=== PATIENT | female | born 1945 | race Caucasian/White ===

== ENCOUNTER 2024-09-21 13:14 | Outpatient (AMB) | payer MEDICARE, OTHER, SELFPAY ==
--- NOTE | 2024-09-21 13:21 | MHC.PC.OV ---
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 patient visit [employer] Marker Required: No Allergies Penicillins Allergy (Intermediate, Verified 09/21/24 13:24) Rash Medication List - Last Reconciled 09/24/24 by Bernadine Mcdonough MD atorvastatin 40 mg PO DAILY calcium 26-magnesium 15-zinc PO cholecalciferol (vitamin D3) 25 mcg PO DAILY [co qu 10 300 .] dorzolamide 2% 1 drp ophthalmic (eye) BID famotidine 40 mg PO BEDTIME fexofenadine (Allergy Relief (fexofenadine)) 180 mg PO DAILY multivitamin 1 tab PO DAILY vitamin B complex ER (Complex B-100 tablet,extended release) 1 tab PO DAILY Tobacco use date assessed: 09/21/24 Fall risk assessment: No Falls in past year Last assessed Fall Risk: 09/21/24 Dental Screening Dental Screen Date: 09/21/24 Did you have a dental visit in the last 12 months?: Yes Did you have a dental problem in the last 6 months where you did not have access to dental care?: No Was dental information given to patient?: Patient has dentist HPI HPI Comments History of Present Illness Details 79 year old female with a past medical history of GERD, hyperlipidemia, osteopenia, allergic rhinitis, atrophic vaginitis, [facility]. Transfer from [facility], Dr Modi then went to [facility] CV: on lipitor 40mg daily-taking 20mg daily. LDL 77. Denies chest pain, shortness of breath. Osteopenia: On calcium & vitamin D, vitamin D. GERD: on famotidine prn. Sees [facility]-Dr Roa. Mammogram: 11/2023 DXA: 06/08/21 osteopenia UTD with covid vaccines, flu vaccines, RSV. PCV 13 2015, Pneumo 23 2017 ROS CONSTITUTIONAL: Denies weight loss, fever and chills. HEENT: Denies changes in vision and hearing. RESPIRATORY: Denies SOB and cough. CV: Denies palpitations and CP GI: Denies abdominal pain, nausea, vomiting and diarrhea. : Denies dysuria and urinary frequency. MSK: Denies new myalgia and joint pain. SKIN: Denies rash and pruritus. NEUROLOGICAL: Denies headache PSYCHIATRIC: Denies recent changes in mood. PHYSICAL EXAM: GENERAL: Alert and oriented x 3. NAD EYES: EOMI. Anicteric. HENT: Moist mucous membranes. No scleral icterus. No cervical lymphadenopathy. LUNGS: Clear to auscultation bilaterally. CARDIOVASCULAR: Regular rate and rhythm. No murmur. No JVD. ABDOMEN: Soft, non-tender +bs EXTREMITIES: No edema. Non-tender. SKIN: No rashes or lesions. Warm. NEUROLOGIC: No focal neurological deficits. CN II-XII grossly intact PSYCHIATRIC: Cooperative. Appropriate mood and affect [facility] Surgical History History of partial hysterectomy Family History Father Alcoholic Heart disease Glaucoma HTN (hypertension) Mother HTN (hypertension) Family history of thyroid problem Rheumatoid arthritis Heart disease Other Substance abuse Social History Housing: Condominium Alcohol intake: current Patient Tobacco Use Status: Former Tobacco user (quit over 50 years ago) Tobacco use type: Cigarette Years Smoked: 5 years, socially e-Cigarette/Vaping Use: Never Used Second Hand Smoke Exposure: Yes (past) Cognitive needs: No Hearing needs: Yes (hearing aids both ears) Vision needs: Yes (glasses) Questionnaire PHQ-9 Over the last 2 weeks, how often have you been bothered by any of the following problems? 1. Little interest or pleasure in doing things: not at all 2. Feeling down, depressed, or hopeless: not at all 3. Trouble falling or staying asleep, or sleeping too much: several days 4. Feeling tired or having little energy: several days 5. Poor appetite or overeating: not at all 6. Feeling bad about yourself - or that you are a failure or have let yourself or your family down: not at all 7. Trouble concentrating on things, such as reading the newspaper or watching television: not at all 8. Moving or speaking so slowly that other people could have noticed. Or the opposite - being so fidgety or restless that you have been moving around a lot more than usual: not at all 9. Thoughts that you would be better off or of hurting yourself in some way: not at all Total score: 2 Depression Screening Interpretation: Negative Depression Screening Done: Yes 23563 - PHQ-9 Billing: Yes Source: Developed by Drs. Jamari Paez, Lorrie Ceja, Carl Colon and colleagues, with an educational gia from [employer]. Thrive Questionnaire I am a: Patient What is your living situation today?: I have a steady place to live Within the past 12 months, did the food you bought not last and you didn't have the money to get more?: Never true Within the past 12 months, did you worry whether your food would run out before you got money to buy more?: Never true Do you have trouble paying for medicines?: No Do you have trouble getting transportation to medical appointments?: No Do you have trouble paying your heating and electricity bill?: No Do you have trouble taking care of your child, family member or friend?: No Do you have trouble with day-to-day activities such as bathing, preparing meals, shopping, managing finances, etc.?: No Are you currently unemployed and looking for a job?: No Are you interested in more education?: No Please select the resources that you would like help with: None Currently or been in a relationship where the following occur: No concerns reported THRIVE Score: 0 AUDIT C Alcohol Use Questionnaire (AUDIT-C) 1. How often do you have a drink containing alcohol?: 4 or more times a week 2. How many drinks containing alcohol do you have on a typical day when you are drinking?: 1 or 2 3. How often do you have six or more drinks on one occasion?: Never Total Score: 4 ANGELA-7 AMB Questionnaire ANGELA-7 Feeling nervous, anxious, or on edge: 1 = Several days Not being able to stop or control worryin = Not at all Worrying too much about different things: 1 = Several days Trouble relaxin = Not at all Being so restless that it is hard to sit still: 0 = Not at all Becoming easily annoyed or irritable: 0 = Not at all Feeling afraid as if something awful might happen: 0 = Not at all Total ANGELA-7 score (0-4 normal; 5-9 mild; 10-14 moderate; 15-21 severe): 2 Source: Developed by Drs. Jamari Paez, Lorrie Ceja, Carl Colon and colleagues, with an educational gia from [employer]. Physical exam (Primary Care) Vital Signs: Last Vital Signs Pulse 72 09/21/24 13:32 Resp 14 09/21/24 13:32 BP 122/72 09/21/24 13:32 Pulse Ox 97 09/21/24 13:32 Oxygen Delivery Method Room Air 09/21/24 13:32 BMI result Body Mass Index 24.2 Tobacco/Smoking Status: Tobacco use Status Tobacco use date assessed 09/21/24 09/21/24 13:35 Patient Tobacco Use Status Former Tobacco user (quit 09/21/24 13:35 over 50 years ago) Tobacco use type Cigarette 09/21/24 13:35 e-Cigarette/Vaping Use Never Used 09/21/24 13:35 PHQ-9: PHQ-9 Score PHQ-9: Total score 2 09/24/24 15:44 Depression Screening Interpretation: Negative Currently or been in a relationship where the following occur: No concerns reported Coding Level of Care Code New Pt Level 4 (72438) Complex EM visit Add On G2211 Diagnoses Encounter to establish care Z76.89 Mixed hyperlipidemia E78.2 Hyperlipidemia type: mixed hyperlipidemia Osteopenia, unspecified location M85.80 Osteopenia location: unspecified Additional Codes PHQ-9 - 21840 - PHQ-9 Billing: Yes ([id number]) Assessment & Plan Assessment & Plan (1) Encounter to establish care: Code(s): Z76.89 - Persons encountering health services in other specified circumstances Category: Medical Plan: 79 year old to establish care. past medical, surgical, social and family history reviewed. labs ordered (2) Hyperlipidemia: Code(s): E78.5 - Hyperlipidemia, unspecified Category: Medical Qualifiers: Hyperlipidemia type: mixed hyperlipidemia Qualified Code(s): E78.2 - Mixed hyperlipidemia Plan: continue statin therapy (3) Osteopenia: Code(s): M85.80 - Other specified disorders of bone density and structure, unspecified site Category: Medical Qualifiers: Osteopenia location: unspecified Qualified Code(s): M85.80 - Other specified disorders of bone density and structure, unspecified site Plan: continue ca & vitamin D Orders: Orders Complete Blood Count Auto Diff 09/21/24 E78.5 - Hyperlipidemia, unspecified, M85.80 - Other specified disorders of bone density and structure, unspecified site, Z13.228 - Encounter for screening for other metabolic disorders, Z76.89 - Persons encountering health services in other specified circumstances Comprehensive Met. Panel 09/21/24 E78.5 - Hyperlipidemia, unspecified, M85.80 - Other specified disorders of bone density and structure, unspecified site, Z13.228 - Encounter for screening for other metabolic disorders, Z76.89 - Persons encountering health services in other specified circumstances Vitamin D 25-OH (D2 and D3) 09/21/24 E78.5 - Hyperlipidemia, unspecified, M85.80 - Other specified disorders of bone density and structure, unspecified site, Z13.228 - Encounter for screening for other metabolic disorders, Z76.89 - Persons encountering health services in other specified circumstances Vitamin B12 and Folate 09/21/24 E78.5 - Hyperlipidemia, unspecified, M85.80 - Other specified disorders of bone density and structure, unspecified site, Z13.228 - Encounter for screening for other metabolic disorders, Z76.89 - Persons encountering health services in other specified circumstances Lipid Panel 09/21/24 E78.5 - Hyperlipidemia, unspecified, M85.80 - Other specified disorders of bone density and structure, unspecified site, Z13.228 - Encounter for screening for other metabolic disorders, Z76.89 - Persons encountering health services in other specified circumstances TSH reflex Free T4 09/21/24 E78.5 - Hyperlipidemia, unspecified, M85.80 - Other specified disorders of bone density and structure, unspecified site, Z13.228 - Encounter for screening for other metabolic disorders, Z76.89 - Persons encountering health services in other specified circumstances Hemoglobin A1c 09/21/24 E78.5 - Hyperlipidemia, unspecified, M85.80 - Other specified disorders of bone density and structure, unspecified site, Z13.228 - Encounter for screening for other metabolic disorders, Z76.89 - Persons encountering health services in other specified circumstances
[2024-09-21 13:32] VITALS: BP 122/72; PULSE 72; RESP 14; O2SAT 97; BMI 24.2
--- OUTSIDE RECORDS SUMMARY | 2024-09-21 15:10 | XMS_ITS | Clinical Summary ---
Author Organization [facility] Facility Address [address] [address] Care Team Providers Care Vise Hand Name Role Phone Mariana Modi MD Primary Care Provider [phone] Allergies Active Allergy Reactions Criticality Noted Date Comments Penicillin G Swelling,Rash Low 05/10/2022 Medications atorvastatin (LIPITOR) 40 MG tablet Take 40 mg by mouth 1 (one) time each day Active coenzyme Q-10 100 MG capsule Take 100 mg by mouth 1 (one) time each day Active Bioflavonoid Products (Renetta-C) 500-550 MG tablet Take by mouth Active omeprazole (PriLOSEC) [address] capsule Take 20 mg by mouth 1 (one) time each day Do not crush or chew. Active [id number] ETHYL ESTERS PO Take 2 g by mouth 2 (two) times a day Active calcium carbonate (OS-DARIAN) 1250 (500 Ca) MG chewable tablet Chew 1 tablet 1 (one) time each day Active Active Problems Problem Noted Date Diagnosed Date Gastroesophageal reflux disease 05/10/2022 Hypercholesterolemia 05/10/2022 Osteopenia 05/10/2022 Rhinitis 05/10/2022 Hypotension, not otherwise specified 05/10/2022 Social History Tobacco Use Types Packs/Day Years Used Date Smoking Tobacco: Never Smokeless Tobacco: Never Tobacco Cessation:Counseling Given: No Alcohol Use Standard Drinks/Week Comments Yes 0 (1 standard drink = 0.6 oz pur e alcohol) Comments Unknown Sex and Gender Information Value Date Recorded Sex Assigned at Not on file Legal Sex Female 5:06 PM EST Gender Identity Not on file Sexual Orientation Not on file Last Filed Vital Signs Vital Sign Reading Time Taken Comments Blood Pressure 111/70 10/11/2022 2:16 PM EDT Pulse 83 10/11/2022 2:16 PM EDT Temperature - - Respiratory Rate - - Oxygen Saturation - - Inhaled Oxygen Concentration - - Weight 59 kg (130 lb) 10/11/2022 2:16 PM EDT Height - - Body Mass Index - - Plan of Treatment Health Maintenance Due Date Last Done Comments Influenza Vaccine (#1) 2024 9, 05/16/2012 Pneumococcal Vaccine: 65+ Years Completed 08/20/2017, 03/05/2016 Hepatitis B Vaccine Aged Out No longe r eligible based on patient's age to complete this topic Insurance MEDICARE [facility] MEDICARE [facility] Care Teams Vise Hand Relationship Specialty Start Date End Date Mariana Modi MD [address] [place] [phone] PCP - General 08/08/20
--- OUTSIDE RECORDS SUMMARY | 2024-09-21 15:10 | XMS_ITS ---
Author Organization [facility], [facility] Address [address], [place] [id number] Care Team Providers Care Churn Drill Operator Name Role Phone ALEXY QUINTANILLA Primary Care Provider Julia Chavez [phone] REASON FOR VISIT CPE, labs Encounters Encounter Location Date Provider Diagnosis [facility], [facility] [address], [place] [phone] 09/01/2024 Julia Chavez PLAN OF TREATMENT No Information Progress Notes * NESSA FLAHERTYDOB:[birth year] (79 yo F)Acc No.[id number]:09/01/2024 Progress Note Patient:??LUCIA FLAHERTY Provider:??Julia Chavez DNP :1945?Age:79 Y?Sex:Fe male Date:09/01/2024 Phone: Address:[address] [facility] [place] [facility] Pcp:ALEXY QUINTANILLA Subjective: * Chief Complaints: * ?1. CPE, labs. * Medical History:?? Objective: Assessment: Plan: * Treatment: Care Plan: * Problems:?? * Billing Information: * Visit Code:?? * Procedure Codes:?? * Sign off status: Pending * Provider:??Julia Chavez DNP Date:??10/2024
--- OUTSIDE RECORDS SUMMARY | 2024-09-21 15:10 | XMS_ITS ---
Author Organization [facility], [facility] Address [address] [place], [place] [phone] Care Team Providers Care Senior Technical Architect Name Role Phone ALEXY QUINTANILLA Primary Care Provider [phone] Julia Chavez [phone] REASON FOR VISIT Contact PCP Encounters Encounter Location Date Provider Diagnosis [facility], [facility] [address] [place], [place] [phone] 09/03/2024 Julia Chavez PLAN OF TREATMENT No Information Progress Notes * NESSA FLAHERTYDOB:[birth year] (79 yo F)Acc No.[id number]:09/03/2024 Patient:??LUCIA FLAHERTY :1945?Age:79 Y?Sex:Fe male Phone: Address:[address] [facility] [address] * true * Date:??
--- OUTSIDE RECORDS SUMMARY | 2024-09-21 15:10 | XMS_ITS ---
Author Organization [facility], [facility] Address [address] [place] [phone] Care Team Providers Care Parachute Mender Name Role Phone ALEXY QUINTANILLA Primary Care Provider [phone] Prisiclla Julia Chavez Unavailable [phone] REASON FOR VISIT Refills MEDICATIONS Medication SIG (Take, Route, Frequency, Duration) Notes Start Date End Date Status Atorvastatin Calcium 40 MG 1 tablet Oral ly Once a day for 90 days 10/16/2023 Active Encounters Encounter Location Date Provider Diagnosis [address] [phone] 08/24/2024 Julia Chavez Mixed hyperlipidemia E78.2 ASSESSMENTS Encounter Date Diagnosis Assessment Notes Treatment Notes Treatment Clinical Notes Section Notes 08/24/2024 Mixed hyperlipidemia (ICD-10 - E78.2) PLAN OF TREATMENT Medication Medication Name Sig Start Date Stop Date Notes Atorvastatin Calcium 40 MG 1 tablet Oral ly Once a day for 90 days 10/16/2023 Progress Notes * NESSA FLAHERTYDOB:[birth year] (79 yo F)Acc No.[id number]:08/24/2024 Patient:??LUCIA FLAHERTY :1945?Age:79 Y?Sex:Fe male Phone: Address:[address] [place] [address] [place] [address] * Refills?? Refill Atorvastatin Calcium Tablet, 40 MG, Orally, 90, 1 tablet, Once a day, 90 days, Refills=3 * true * Date:??
== END 2024-09-21 14:13 | disposition home or self-care (01) ==
PROVIDERS: PCP Internal Medicine; Visit Provider Internal Medicine
DX: Z76.89 Persons encountering health services in other specified circumstances (principal); E78.2 Mixed hyperlipidemia; M85.80 Other specified disorders of bone density and structure, unspecified site

== ENCOUNTER → 2024-09-21 13:14 | Outpatient (BNVA) | payer MEDICARE, OTHER, SELFPAY | PROVIDERS: PCP Internal Medicine; Visit Provider Internal Medicine | DX: Z76.89 Persons encountering health services in other specified circumstances (principal); E78.2 Mixed hyperlipidemia; M85.80 Other specified disorders of bone density and structure, unspecified site; Z79.899 Other long term (current) drug therapy | CPT/HCPCS: 96127; 99202 ==

== ENCOUNTER 2024-12-23 08:09 | Outpatient (REF) | payer MEDICARE, OTHER, SELFPAY ==
--- OUTSIDE RECORDS SUMMARY | 2024-12-23 08:23 | XMS_ITS | Continuity of Care Document ---
Author Name [facility] Organization [facility] Care Team Providers Care Shirt Creaser Name Role Phone [facility] Unavailable Unavailable Problems Combined list of problems from Department of Defense and Veterans Affairs facilities. It does not include entries that were removed or entered in error. Problem Status Onset Date Problem Type Date of Resolution Comments Source Diagnosis: ICD-10-CM Z71.0 Prsn encntr hlth serv to consult on behalf of another person Active Diagnosis [facility] Diagnosis: ICD-10-CM Z74.1 Need for assistance with personal care Active Diagnosis [facility] Encounters Combined list of: 1) Encounters from Department of Veterans Affairs facilities going backup to the last 18 months, not all [place] inpatient encounters are included; 2) Encounters from the Department of Defense facilities going backup to 280 months. Location Location Details Encounter Type Encounter Number Reason For Visit Attending Provider ADM Date DC Date Status Disposition Source [facility] HLTH V ASSMT/REAS SESSMENT [id number] Diagnos is: ICD-10- CM Z71.0 Prsn encntr hlth serv to consult on behalf of another person MICHAELA,RU TH E 07/07 [place] [facility] [place] [facility] [place] [facility] PH1 ASSMT&MGMT NQHP 11-20 [id number] Diagnos is: ICD-10- CM Z71.0 Prsn encntr hlth serv to consult on behalf of another person JENNINGS,RU TH E 08/21 [facility] [place] [facility] [place] [facility] PROGRAM INTAKE ASSESSMENT [id number] Diagnos is: ICD-10- CM Z74.1 Need for assista nce with persona l care RECCHIA,AN GELINA R 08/29 [facility] [place] [facility] [place] Outpatient Encounter [id number] 09/03 [facility] [place] [facility] (6[facility] HLTH [facility] IVNTJ GRP 30 [id number] Diagnos is: ICD-10- CM Z71.0 Prsn encntr hlth serv to consult on behalf of another person LUIS PARRA 09/08 [facility]GE[facility] [place] [facility] Outpatient Encounter [id number] Diagnos is: ICD-10- CM Z71.0 Prsn encntr hlth serv to consult on behalf of another person JENNINGS,RU TH E 09/09 [facility] [place] [facility] [place] [facility] PH1 ASSMT&MGMT NQHP 5-10 [id number] Diagnos is: ICD-10- CM Z71.0 Prsn encntr hlth serv to consult on behalf of another person JENNINGS,RU TH E 09/30 [facility] [place] [facility] [place] [facility] PH1 ASSMT&MGMT NQHP 5-10 [id number] Diagnos is: ICD-10- CM Z71.0 Prsn encntr hlth serv to consult on behalf of another person JENNINGS,RU TH E 10/27 [place] [facility] [place] [facility]
[2024-12-23 11:24] LABS: MANUAL DIFF FLAG NO
[2024-12-23 11:34] LABS: Basophils Absolute Auto 0.1 X10*3/uL (0.0-0.2); Eosinophils Absolute Auto 0.2 X10*3/uL (0.0-0.4); Eosinophils Percent Auto 3.1 % (0-4); Hematocrit 41.2 % (37.0-47.0); Hemoglobin 13.4 g/dl (12.0-16.0); Imm Gran Abs Auto 0.02 X10*3/uL (0.00-0.03); Imm Gran Pct Auto 0.3 % (0.0-0.4); Lymphocytes Absolute Auto 1.7 X10*3/uL (1.2-4.9); Lymphocytes Percent Auto 24.5 % (20-40); Mean Corpuscular HGB Conc 32.5 g/dl (31.0-35.0); Mean Corpuscular Hemoglobin 28.2 pg (27.0-33.0); Mean Corpuscular Volume 86.6 fL (80.0-98.0); Mean Platelet Volume 10.1 fL (9.4-12.3); Monocytes Absolute Auto 0.6 X10*3/uL (0.1-1.2); Monocytes Percent Auto 8.5 % (2-11); Neutrophils Absolute Auto 4.3 x10*3/uL (2.0-8.3); Neutrophils Percent Auto 62.6 % (45-73); Platelet Count 252 X10*3/uL (160-400); Red Blood Count 4.76 X10*6/uL (4.20-5.50); White Blood Count 6.8 X10*3/uL (4.8-10.8)
[2024-12-23 11:40] LABS: Estimated Average Glucose 108 mg/dL; Hemoglobin A1C 127.2423 umol/L; Hemoglobin A1c % 5.4 % (<6.0); Total Hemoglobin (HGBA1C) 3578.8511 umol/L
[2024-12-23 12:04] LABS: Alanine Aminotransferase 38 U/L (0-31); Albumin Level 4.7 g/dL (3.5-5.0); Alkaline Phosphatase 75 U/L (39-117); Anion Gap 10 (12-20); Aspartate Amino Transferase 35 U/L (5-31); Bilirubin Total 1.3 mg/dL (0.0-1.0); Blood Urea Nitrogen 12 mg/dL (9-16); Calcium 9.5 mg/dL (8.4-10.2); Carbon Dioxide 31 mmol/L (22-29); Chloride 103 mmol/L (96-108); Cholesterol 174 mg/dL (<200); Estimated Glomerular Filt Rate > 60; Glucose Random 94 mg/dL (60-115); HDL Cholesterol 62 mg/dL (>40); LDL Cholesterol Calculated 88 mg/dL (<100); Potassium 4.3 mmol/L (3.3-5.1); Sodium 140 mmol/L (135-145); TSH reflex Free T4 2.45 uIU/mL (0.32-4.0); Total Protein 7.6 g/dL (6.5-8.0); Triglycerides 120 mg/dL (<150)
[2024-12-23 12:30] LABS: Folate 14.3 ng/mL (> or = 4.0); Vitamin B12 609 pg/mL (200-900)
[2024-12-27 16:23] LABS: Vitamin D 25-OH, D2 <4 ng/mL; Vitamin D 25-OH, D3 47 ng/mL; Vitamin D 25-OH, Total 47 ng/mL (30-100)
== END 2024-12-23 08:10 | disposition home or self-care (01) ==
LOC: HO.WFDLDS 08:09
PROVIDERS: Visit Provider Internal Medicine
DX: Z13.228 Encounter for screening for other metabolic disorders (principal); M85.80 Other specified disorders of bone density and structure, unspecified site; E78.5 Hyperlipidemia, unspecified; Z76.89 Persons encountering health services in other specified circumstances; Z13.1 Encounter for screening for diabetes mellitus
CPT/HCPCS: 36415; 80053; 80061; 82306; 82607; 82746; 83036; 84443; 85025

== ENCOUNTER 2024-12-29 11:04 | Outpatient (AMB) | payer MEDICARE, OTHER, SELFPAY ==
--- NOTE | 2024-12-29 11:11 | AM.OFFVISMDC ---
Intake Vital Signs 12/29/24 11:25 Height 5 ft 1.61 in Weight 130 lb 8 oz BMI 24.2 BP 120/64 Blood Pressure Location Rt brachial Position Sitting Respiration 14 Pulse 70 Pulse Source Pulse Oximeter Pulse Oximetry (%) 96 Oxygen Delivery Method Room Air Intake Visit Reasons: AWV Intake Note: Medical Wellness Visit. Director Consumer Required: No Allergies Penicillins Allergy (Intermediate, Verified 12/29/24 11:11) Rash HPI HPI Comments History of Present Illness Details 79 year old female with a past medical history of GERD, hyperlipidemia, osteopenia, allergic rhinitis, atrophic vaginitis, presenting for AWV. Transfer from [facility], Dr Modi then went to [facility] CV: on lipitor 40mg daily-taking 20mg daily. LDL 77. Denies chest pain, shortness of breath. Osteopenia: On calcium & vitamin D, vitamin D. GERD: [facility] Follows with Dr Moncada, allergy Mammogram: 11/2023 DXA: 06/08/21 osteopenia UTD with covid vaccines, flu vaccines, RSV. PCV 13 2015, Pneumo 23 2018 ROS CONSTITUTIONAL: Denies weight loss, fever and chills. HEENT: Denies changes in vision and hearing. RESPIRATORY: Denies SOB and cough. CV: Denies palpitations and CP GI: Denies abdominal pain, nausea, vomiting and diarrhea. : Denies dysuria and urinary frequency. MSK: Denies new myalgia and joint pain. SKIN: Denies rash and pruritus. NEUROLOGICAL: Denies headache PSYCHIATRIC: Denies recent changes in mood. PHYSICAL EXAM: GENERAL: Alert and oriented x 3. NAD EYES: EOMI. Anicteric. HENT: Moist mucous membranes. No scleral icterus. No cervical lymphadenopathy. LUNGS: Clear to auscultation bilaterally. CARDIOVASCULAR: Regular rate and rhythm. No murmur. No JVD. ABDOMEN: Soft, non-tender +bs EXTREMITIES: No edema. Non-tender. SKIN: No rashes or lesions. Warm. NEUROLOGIC: No focal neurological deficits. CN II-XII grossly intact PSYCHIATRIC: Cooperative. Appropriate mood and affect [facility] Surgical History History of partial hysterectomy Family History Father Alcoholic Heart disease Glaucoma HTN (hypertension) Mother HTN (hypertension) Family history of thyroid problem Rheumatoid arthritis Heart disease Other Substance abuse Social History Housing: Condominium Alcohol intake: current Patient Tobacco Use Status: Former Tobacco user (quit over 50 years ago) Tobacco use type: Cigarette Years Smoked: 5 years, socially e-Cigarette/Vaping Use: Never Used Second Hand Smoke Exposure: Yes (past) Cognitive needs: No Hearing needs: Yes (hearing aids both ears) Vision needs: Yes (glasses) Questionnaire Medicare Wellness Checkup What is your age?: 80 or older What gender do you identify with?: female During the past 4 weeks, how much have you been bothered by emotional problems such as feeling anxious, depressed, irritable, sad or downhearted, and blue?: not at all During the past 4 weeks, has your physical & emotional health limited your social activities with family, friends, neighbors, or groups?: not at all During the past 4 weeks, how much bodily pain have you generally had?: very mild pain During the past 4 weeks, was someone available to help you if you needed & wanted help?: yes, as much as I wanted During the past 4 weeks, what was the hardest physical activity you could do for at least 2 minutes?: heavy Can you get to places out of walking distance without help? (For eg., can you travel alone on buses, taxis or drive your car?): Yes Can you go shopping for groceries or clothes without someone's help?: Yes Can you prepare your own meals?: Yes Can you do your housework without help?: Yes Because of any health problems, do you need the help of another person with your personal care needs such as eating, bathing, dressing or getting around the house?: Yes Can you handle your own money without help?: Yes During the past 4 weeks, how would you rate your health in general?: excellent During the past 4 weeks how have things been going for you?: very well; could hardly better Are you having difficulties driving your car?: no Do you always fasten your seat belt when you are in a car?: yes, usually During past 4 weeks, have you been bothered by the following: never: Falling or dizzy when standing up, Sexual problems?, Trouble eating well?, Teeth or denture problems?, Problems using the telephone? and Tiredness or fatigue? Have you fallen 2 or more times in the past year?: No Are you afraid of falling?: No Are you a smoker?: no During the past 4 weeks, how many drinks of wine, beer, or other alcoholic beverages did you have?: 1 drink or less per week Do you exercise for about 20 minutes 3 or more times a week?: yes, most of the time Have you been given information to help with the following?: yes: Hazards in your house that might hurt you? and yes: Keeping track of your medications? How often do you have trouble taking medicines the way you have been told to take them?: I always take medicine as prescribed How confident are you that you can control & manage most of your health problems?: very confident What is your race?: White Mini Mental State Exam (MMSE) Orientation What is the (year) (season) (date) (day) (month)?: year (2024), season (Spring) and month (12/28/2024) Where are we (state) (county) (town or city) (hospital) (floor)?: state ([place]), county ([place]), town or city ([place]), hospital[place] and floor ([place]) Registration Name of 3 unrelated objects clearly and slowly, then ask patient to repeat all 3 of them. (1st repeat determines score. Make sure they can repeat all three): object 1 (ball ), object 2 (flag) and object 3 (tree) Attention & Calculation (CHOOSE ONE) Spell WORLD backwards (DLROW): 5 letters Recall Ask patient to repeat the 3 items from question #3.: object 1 (Tree) Language Show patient a wristwatch & ask what it is. Repeat for pencil.: watch Ask the patient to repeat the phrase 'No ifs, ands, or buts' after you.: correct Ask the patient to 'take a piece of paper with their right hand' 'fold paper in half' 'place paper on floor': take paper in right hand Print the sentence 'CLOSE YOUR EYES' on a piece. If patient actually closes eyes then score.: followed written direction Give patient a blank piece of paper & ask to write a sentence. Score if it contains a noun & verb.: sentence contains subject and verb Ask patient to copy figure of intersecting pentagons exactly. Score if all 10 angles & 2 intersects are included.: all 10 angles present & 2 are intersected Score Score: 23 Physical Exam Vital Signs: Last Vital Signs Pulse 70 12/29/24 11:25 Resp 14 12/29/24 11:25 BP 120/64 12/29/24 11:25 Pulse Ox 96 12/29/24 11:25 Oxygen Delivery Method Room Air 12/29/24 11:25 BMI result Body Mass Index 24.2 Assessment & Plan Assessment & Plan (1) Medicare annual wellness visit, subsequent: Code(s): Z00.00 - Encounter for general adult medical examination without abnormal findings Plan MWV HRA reviewed HLD-stable on statin Medications: New famotidine 40 mg PO BEDTIME 90 tabs 3RF Coding Level of Care Code Medicare Subsequent (G0439) Diagnoses Medicare annual wellness visit, subsequent Z00.00 CPT Codes Advance Care Planning - Time spent: 1-15 minutes, not on file ([id number]) Advance Care Planning Advance Care Planning discussion: Exists, not on file Forms completed: Living will Time spent: 1-15 minutes, not on file
[2024-12-29 11:25] VITALS: BP 120/64; PULSE 70; RESP 14; O2SAT 96; BMI 24.2
--- OUTSIDE RECORDS SUMMARY | 2024-12-29 12:46 | XMS_ITS | Clinical Summary ---
Author Organization [facility] Facility Address [address] [address] Care Team Providers [employer] Name Role Phone Mariana Modi MD Primary Care Provider [phone] Allergies Active Allergy Reactions Criticality Noted Date [...] day Do not crush or chew. Active [id number] ETHYL ESTERS PO Take 2 g by [...] Due Date Last Done Comments Influenza Vaccine (Season Ended) 2025 04/30/2019, 05/16/2012 Pneumococcal Vaccine: 50+ Years Completed 08/20/2017, 03/05/2016 Pneumococcal Vaccine: Peds (0 to 5 Years) and At-Risk Patients (6 to 49 Years) Discontinued 08/20/2017, 03/05/2016 Hepatitis B Vaccine Aged Out No longe r eligible based on patient's age to complete this topic Insurance Medicare [facility] Medicare [facility] [employer] Relationship Specialty Start Date End Date Mariana Modi MD [address] [place] [id number] PCP - General 08/08/20
== END 2024-12-29 11:52 | disposition home or self-care (01) ==
LOC: HO.HMCFM 11:05
PROVIDERS: PCP Internal Medicine; Visit Provider Internal Medicine
DX: Z00.00 Encounter for general adult medical examination without abnormal findings (principal)

== ENCOUNTER → 2024-12-29 11:04 | Outpatient (BNVA) | payer MEDICARE, OTHER, SELFPAY | PROVIDERS: PCP Internal Medicine; Visit Provider Internal Medicine | DX: Z13.89 Encounter for screening for other disorder (principal) ==

== ENCOUNTER 2025-07-05 11:10 | Outpatient (AMB) | payer MEDICARE, OTHER, SELFPAY ==
--- NOTE | 2025-07-05 11:21 | MHC.PC.OV ---
Vital Signs 07/05/25 11:25 Height 5 ft 1.61 in Weight 131 lb 4 oz BMI 24.3 BP 124/70 Blood Pressure Location Rt brachial Position Sitting Respiration 12 Pulse 77 Pulse Source Pulse Oximeter Pulse Oximetry (%) 97 Oxygen Delivery Method Room Air Intake Visit Reasons: f/up Intake Note: Follow up Allergies Penicillins Allergy (Intermediate, Verified 07/05/25 11:26) Rash Tobacco use date assessed: 07/05/25 Fall risk assessment: 1 Fall in past year Last assessed Fall Risk: 07/05/25 Dental Screening Dental Screen Date: 09/21/24 HPI HPI Comments History of Present Illness Details 80 year old female with a past medical history of GERD, hyperlipidemia, osteopenia, allergic rhinitis, atrophic vaginitis, presenting for follow up CV: on lipitor 40mg daily-taking 20mg daily. Denies chest pain, shortness of breath. Osteopenia: On calcium & vitamin D. GERD: on famotidine prn. Sees [facility]-Dr Roa. Follows with Dr Moncada, allergy is 89 and has multiple medical conditions. She has increased stressors having to care for him. For the past 3 months has had greatly increased multiple joint and muscle pains which she has not experienced in the past Mammogram: 11/2023 DXA: 06/08/21 osteopenia UTD with covid vaccines, flu vaccines, RSV. PCV 13 2015, Pneumo 23 2018 ROS CONSTITUTIONAL: Denies weight loss, fever and chills. HEENT: Denies changes in vision and hearing. RESPIRATORY: Denies SOB and cough. CV: Denies palpitations and CP GI: Denies abdominal pain, nausea, vomiting and diarrhea. : Denies dysuria and urinary frequency. MSK: Denies new myalgia and joint pain. SKIN: Denies rash and pruritus. NEUROLOGICAL: Denies headache PSYCHIATRIC: Denies recent changes in mood. PHYSICAL EXAM: GENERAL: Alert and oriented x 3. NAD EYES: EOMI. Anicteric. HENT: Moist mucous membranes. No scleral icterus. No cervical lymphadenopathy. LUNGS: Clear to auscultation bilaterally. CARDIOVASCULAR: Regular rate and rhythm. No murmur. No JVD. ABDOMEN: Soft, non-tender +bs EXTREMITIES: No edema. Non-tender. SKIN: No rashes or lesions. Warm. NEUROLOGIC: No focal neurological deficits. CN II-XII grossly intact PSYCHIATRIC: Cooperative. Appropriate mood and affect [facility] Surgical History History of partial hysterectomy Family History Father Alcoholic Heart disease Glaucoma HTN (hypertension) Mother HTN (hypertension) Family history of thyroid problem Rheumatoid arthritis Heart disease Other Substance abuse Social History Housing: Condominium Alcohol intake: current Patient Tobacco Use Status: Former Tobacco user (quit over 50 years ago) Tobacco use type: Cigarette Years Smoked: 5 years, socially e-Cigarette/Vaping Use: Never Used Second Hand Smoke Exposure: Yes (past) service: No Current occupational status: retired Cognitive needs: No Hearing needs: Yes (hearing aids both ears) Vision needs: Yes (glasses) Questionnaire Thrive Questionnaire Date Thrive assessed: 09/21/24 I am a: Patient What is your living situation today?: I have a steady place to live Within the past 12 months, did the food you bought not last and you didn't have the money to get more?: Never true Within the past 12 months, did you worry whether your food would run out before you got money to buy more?: Never true Do you have trouble paying for medicines?: No Do you have trouble getting transportation to medical appointments?: No Do you have trouble paying your heating and electricity bill?: No Do you have trouble taking care of your child, family member or friend?: No Do you have trouble with day-to-day activities such as bathing, preparing meals, shopping, managing finances, etc.?: No Are you currently unemployed and looking for a job?: No Are you interested in more education?: No Please select the resources that you would like help with: None Currently or been in a relationship where the following occur: No concerns reported THRIVE Score: 0 Physical exam (Primary Care) Vital Signs: Last Vital Signs Pulse 77 07/05/25 11:25 Resp 12 07/05/25 11:25 BP 124/70 07/05/25 11:25 Pulse Ox 97 07/05/25 11:25 Oxygen Delivery Method Room Air 07/05/25 11:25 BMI result Body Mass Index 24.3 Tobacco/Smoking Status: Tobacco use Status Tobacco use date assessed 07/05/25 07/05/25 11:29 Patient Tobacco Use Status Former Tobacco user (quit 07/05/25 11:31 over 50 years ago) Tobacco use type Cigarette 07/05/25 11:31 e-Cigarette/Vaping Use Never Used 07/05/25 11:31 Thrive Assessment: Date of Thrive Assessment Date Thrive assessed 09/21/24 07/05/25 11:21 Currently or been in a relationship where the following occur: No concerns reported Coding Level of Care Code Est Pt Level 4 (98884) Diagnoses Polyarthralgia M25.50 Mixed hyperlipidemia E78.2 Hyperlipidemia type: mixed hyperlipidemia Osteopenia, unspecified location M85.80 Osteopenia location: unspecified Assessment & Plan Assessment & Plan (1) Polyarthralgia: Code(s): M25.50 - Pain in unspecified joint Category: Medical (2) Hyperlipidemia: Code(s): E78.5 - Hyperlipidemia, unspecified Category: Medical Qualifiers: Hyperlipidemia type: mixed hyperlipidemia Qualified Code(s): E78.2 - Mixed hyperlipidemia (3) Osteopenia: Code(s): M85.80 - Other specified disorders of bone density and structure, unspecified site Category: Medical Qualifiers: Osteopenia location: unspecified Qualified Code(s): M85.80 - Other specified disorders of bone density and structure, unspecified site Plan 80 year old female presenting for follow up Polyarthralgia-check labs, 5 day prednisone. referral rheumatology Fatigue-labs ordered. discussed stress component HLD -on statin therapy Orders: Orders Vitamin B12 07/05/25 E78.2 - Mixed hyperlipidemia, M85.80 - Other specified disorders of bone density and structure, unspecified site, Z13.228 - Encounter for screening for other metabolic disorders Gamma Glutamyl Transpeptidase 07/05/25 E78.2 - Mixed hyperlipidemia, R79.89 - Other specified abnormal findings of blood chemistry, Z13.228 - Encounter for screening for other metabolic disorders Lyme IgG/IgM w/reflex to WB 07/05/25 M25.50 - Pain in unspecified joint Rheumatoid Factor 07/05/25 M25.50 - Pain in unspecified joint Magnesium 07/05/25 M25.50 - Pain in unspecified joint Vitamin D 1,25 dihydroxy 07/05/25 E78.2 - Mixed hyperlipidemia, M85.80 - Other specified disorders of bone density and structure, unspecified site, Z13.228 - Encounter for screening for other metabolic disorders Liver Panel 07/05/25 E78.2 - Mixed hyperlipidemia, R79.89 - Other specified abnormal findings of blood chemistry, Z13.228 - Encounter for screening for other metabolic disorders Basic Metabolic Panel 07/05/25 E78.2 - Mixed hyperlipidemia, R79.89 - Other specified abnormal findings of blood chemistry, Z13.228 - Encounter for screening for other metabolic disorders Erythrocyte Sedimentation Rate 07/05/25 M25.50 - Pain in unspecified joint Cyclic Citrullinated Peptide 07/05/25 M25.50 - Pain in unspecified joint Referrals Rheumatology Referral M25.50 - Pain in unspecified joint Medications: New prednisone 40 mg (2 x 20 mg) PO DAILY 10 tabs 0RF
[2025-07-05 11:25] VITALS: BP 124/70; PULSE 77; RESP 12; O2SAT 97; BMI 24.3
== END 2025-07-05 12:07 | disposition home or self-care (01) ==
LOC: HO.HMCFM 11:11
PROVIDERS: PCP Internal Medicine; Visit Provider Internal Medicine
DX: M25.50 Pain in unspecified joint (principal); E78.2 Mixed hyperlipidemia; M85.80 Other specified disorders of bone density and structure, unspecified site

== ENCOUNTER 2025-07-05 11:10 | Outpatient (REF) | payer MEDICARE, OTHER, SELFPAY ==
[2025-07-05 15:23] LABS: Alanine Aminotransferase 34 U/L (0-31); Albumin Level 4.7 g/dL (3.5-5.0); Alkaline Phosphatase 83 U/L (39-117); Anion Gap 15 (12-20); Aspartate Amino Transferase 34 U/L (5-31); Blood Urea Nitrogen 15 mg/dL (9-16); Calcium 10.3 mg/dL (8.4-10.2); Carbon Dioxide 29 mmol/L (22-29); Chloride 101 mmol/L (96-108); Estimated Glomerular Filt Rate > 60; Gamma Glutamyl Transpeptidase 21 U/L (7-33); Magnesium 2.3 mg/dL (1.6-2.6); Potassium 4.8 mmol/L (3.3-5.1); Sodium 140 mmol/L (135-145); Total Protein 7.7 g/dL (6.5-8.0)
[2025-07-05 16:01] LABS: Erythrocyte Sedimentation Rate 12 MM/HR (0-20)
[2025-07-05 18:24] LABS: Vitamin B12 626 pg/mL (200-900)
[2025-07-06 06:43] LABS: Lyme Abs Screen <0.90 index
[2025-07-09 14:53] LABS: VITAMIN D (1,25 OH) D3 49 pg/mL; Vit D (1,25-Dihydroxy) Total 49 pg/mL (18-72); Vitamin D (1,25 OH) D2 <8 pg/mL
== END 2025-07-05 11:11 | disposition home or self-care (01) ==
LOC: HO.WFDLDS 11:10
PROVIDERS: PCP Internal Medicine; Visit Provider Internal Medicine
DX: Z13.228 Encounter for screening for other metabolic disorders (principal); R79.89 Other specified abnormal findings of blood chemistry; E78.2 Mixed hyperlipidemia; M25.50 Pain in unspecified joint; M85.80 Other specified disorders of bone density and structure, unspecified site
CPT/HCPCS: 36415; 80048; 80076; 82607; 82652; 82977; 83735; 85652; 86200; 86431; 86617; 86618; 99212